=== PATIENT | male | born 1995 | race Caucasian/White ===

== ENCOUNTER 2016-10-19 10:53 | Emergency (ER) | payer BC ==
[2016-10-19 11:14] VITALS: O2SAT 97
[2016-10-19] MEDS ORDERED: ONDANSETRON DISINTEGRATING 4 MG TAB ONE (11:14)
[2016-10-19] MEDS ORDERED: ONDANSETRON DISINTEGRATING 4 MG TAB PO ONE (11:17)
[2016-10-19] MEDS ORDERED: ONDANSETRON 4 MG/2 ML VIAL ONE (14:02)
--- NOTE | 2016-10-19 14:18 | EDPHY ---
H & P Time Seen by Provider: 10/19/16 14:14 HPI/ROS: CHIEF COMPLAINT: Abdominal pain, vomiting. HISTORY OF PRESENT ILLNESS: The patient is a 21-year-old male who presents with vomiting and abdominal pain since 0400 this morning upon waking. This has been associated with watery diarrhea and low-grade fever.. The abdominal pain is crampy and does not radiate. It is located in the lower abdomen. He denies eating any unusual foods recently. He denies other complaints at this time. REVIEW OF SYSTEMS: A complete 10-point review of systems was performed and is negative except for those items mentioned in the HPI. Past Medical/Surgical History: Denies. Social History: Nonsmoker. Smoking Status: Never smoked Physical Exam: General Appearance: Alert, nontoxic-appearing Eyes: Pupils equal and round, no conjunctival pallor or injection ENT, Mouth: Mucous membranes moist Neck: Normal inspection Respiratory: Lungs are clear to auscultation Cardiovascular: Regular rate and rhythm Gastrointestinal: Abdomen is soft, mild diffuse tenderness Neurological: A&O, nonfocal, normal gait Skin: Warm and dry, no rash Extremities: Nontender, no pedal edema Psychiatric: Mood and affect normal Constitutional: Initial Vital Signs Temperature (C) 37 C 10/19/16 11:11 Heart Rate 114 H 10/19/16 11:11 Respiratory Rate 20 10/19/16 11:11 Blood Pressure 112/76 10/19/16 11:11 O2 Sat (%) 97 10/19/16 11:11 O2 Delivery Mode Room Air Allergies/Adverse Reactions: amoxicillin Allergy (Verified 10/19/16 11:10) Home Medications: Medication Instructions Recorded Lexapro 10 MG 10/19/16 Ondansetron Odt [Zofran Odt 4 mg 4 mg PO Q4 PRN #6 tab 10/19/16 (*)] Medical Decision Making ED Course/Re-evaluation: An IV was established. 1L IV Saline administered for hydration. 4mg PO Zofran administered for nausea, 30mg IV Toradol for headache. Flu swab sent to the lab. Flu swab returns negative. Patient will be discharged after IV fluids and Toradol. 3:00 p.m.-the patient feels much better after IV fluids, Zofran and Toradol. Abdomen is soft and nontender. Able to tolerate oral fluids well. Differential Diagnosis: Differential diagnosis includes though it is not limited to appendicitis, cholecystitis, diverticulitis, pyelonephritis, bowel perforation, small bowel obstruction. - Data Points Medications Given: Discontinued Medications Sodium Chloride (Ns) 1,000 mls @ 0 mls/hr IV ONCE ONE PRN Reason: Wide Open Stop: 10/19/16 14:44 Last Admin: 10/19/16 14:43 Dose: 1,000 mls Ketorolac Tromethamine (Toradol) 30 mg IVP EDNOW ONE Stop: 10/19/16 14:25 Last Admin: 10/19/16 14:43 Dose: 30 mg Ondansetron HCl (Zofran Odt) 4 mg PO EDNOW ONE Stop: 10/19/16 11:18 Last Admin: 10/19/16 11:20 Dose: 4 mg Departure - Departure Disposition: Home, Routine, Self-Care Clinical Impression: Vomiting Qualifiers: Vomiting type: unspecified Vomiting Intractability: non-intractable Nausea presence: with nausea Qualifier Code: (R11.2) Nausea with vomiting, unspecified Diarrhea Qualifiers: Diarrhea type: unspecified type Qualifier Code: (R19.7) Diarrhea, unspecified Condition: Good Instructions: Acute Nausea and Vomiting (ED), Acute Diarrhea (ED), Abdominal Pain (ED) Additional Instructions: Drink plenty of clear fluids and advance diet slowly as tolerable. Get plenty of rest. You can try Imodium for the diarrhea. Follow up with your primary care provider in the next 2-3 days if symptoms are not improving. Return to the emergency department if you experience serious worsening of condition. Referrals: [place],. [Primary Care Provider] - As per Instructions Prescriptions: Ondansetron Odt [Zofran Odt 4 mg (*)] 4 mg PO Q4 PRN #6 tab PRN Reason: Nausea Report Scribed for: Kalie Romero Report Scribed by: Nathanael Mays Date of Report: 10/19/16 Time of Report: 14:15 Physician Review and Approval Statement: 10/19/16 14:16 Portions of this note were transcribed by a bacteriologist medical. I personally performed a history, physical exam, medical decision making, and confirmed accuracy of information the transcribed note.
[2016-10-19] MEDS ORDERED: KETOROLAC 30 MG/1 ML SDV IVP ONE (14:24)
[2016-10-19] MEDS ORDERED: NS 1,000 ML IV ONE (14:43)
[2016-10-19 15:11] VITALS: BP 116/76; PULSE 98; RESP 18; TEMP 98.2
== END 2016-10-19 15:11 | disposition home or self-care (01) ==
DX: R11.2 Nausea with vomiting, unspecified (principal); R19.7 Diarrhea, unspecified
CPT/HCPCS: 96374; J1885; J2405